=== PATIENT | female | born 1980 | race Caucasian/White ===

== ENCOUNTER 2020-01-29 12:23 | Emergency (ER) | payer OTHER, SELFPAY ==
[2020-01-29 12:32] VITALS: BP 120/71; PULSE 63; RESP 18; TEMP 37.7; O2SAT 100
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
== END 2020-01-29 13:20 | disposition home or self-care (01) ==
PROVIDERS: Emergency Provider Nurse Practitioner Family
DX: J06.9 Acute upper respiratory infection, unspecified (principal); Z87.891 Personal history of nicotine dependence
CPT/HCPCS: 99213; G0463

== ENCOUNTER 2020-02-04 09:03 | Emergency (ER) | payer OTHER, SELFPAY ==
[2020-02-04 09:10] VITALS: BP 111/73; PULSE 59; RESP 16; TEMP 37.3; O2SAT 98
--- NOTE | 2020-02-04 09:16 | ED.URI ---
HPI - URI/Sore Throat General Chief Complaint: Upper Respiratory Infection Stated Complaint: respiratory infection Time Seen by Provider: 02/04/20 09:16 Source: patient and RN notes reviewed History of Present Illness HPI Narrative: Patient is a 39-year-old female that presents the urgent care with complaints of continuous URI symptoms as well as possible UTI. Patient denies any known fever, nausea, vomiting, abdominal pain. States that her employer has noticed her persistent cough and wants her to be ruled out . Patient was seen on the and given Tessalon Perles, Flonase and Claritin and states that she has been using them as directed. Patient states that since her last visit on the she does have some intermittent shortness of breath occasionally. Patient states that her urinary symptoms started yesterday and she has a history of frequent urinary tract infections. Patient has also been taking Azo. No other acute complaints. No acute distress noted. Patient read the plan of care. Related Data Allergies Allergy/AdvReac Type Severity Reaction Status Date / Time amoxicillin Allergy Unknown HIVES, Verified 02/04/20 09:27 CHEST PAIN moxifloxacin Allergy Unknown HIVES Verified 02/04/20 09:27 Penicillins Allergy Unknown HIVES Verified 02/04/20 09:27 Review of Systems Review of Systems: Narrative: CONSTITUTIONAL: Denies fever, chills, or sweats. EYES: Denies visual changes, redness, or discharge. ENT: Reports of rhinorrhea CARDIOVASCULAR: Denies chest pain, palpitations, or edema. RESPIRATORY: Reports a persistent dry cough with intermittent dyspnea GASTROINTESTINAL: Denies abdominal pain, nausea, vomiting, or diarrhea. GENITOURINARY: Reports of dysuria, urinary frequency and urgency SKIN: Denies rash or itching. MUSCULOSKELETAL: Denies back pain, joint pain, or myalgia. NEUROLOGIC: Denies headache, numbness, or weakness. All other systems reviewed are negative, except as documented in HPI. [facility] Past Medical History Medical History (Updated 02/04/20 @ 09:44 by MELISSA Rico) Trigger finger Urinary tract bacterial infections Surgical History Surgical History (Updated 01/29/20 @ 13:14 by MELISSA Mondragon) History of arthroscopic knee surgery Right knee S/P laparoscopic procedure S/P trigger finger release Right middle finger Family History Family History (Updated 01/29/20 @ 13:14 by MELISSA Mondragon) Mother Hypertension Social History Social History (Updated 01/29/20 @ 13:15 by MELISSA Mondragon) Smoking status: Former smoker Second hand tobacco smoke exposure: Yes Alcohol intake: current Substance use: never Gender identity (if verbalized by the patient): Female Comments At the time of my signature, I reviewed and agree with the nursing past medical, surgical, social, and family history. There is no relevant family history pertinent to the patient complaint. Exam Narrative: Exam Narrative: GENERAL: This is a well-nourished, well-developed patient, in no apparent distress. HEAD: normocephalic, atraumatic. EYES: PERRL. Sclera clear/white. Vision is grossly intact. EARS: External ears normal, auditory canals clear and without drainage, TMs normal without perforation. Hearing grossly intact. NOSE: External nose normal with no obvious nasal discharge, nares without redness, clear rhinorrhea. THROAT: Mucous membranes moist, posterior pharynx clear. NECK: Neck supple, non-tender without lymphadenopathy CARDIOVASCULAR: Regular rate and rhythm without murmurs, gallops, or rubs. RESPIRATORY: Clear to auscultation. Slight diminished right upper lobe. No wheezes, rales, or rhonchi. SKIN: warm, intact with no suspicious lesions or rash, good texture and turgor. NEURO: awake, alert, and oriented to person, place and time. There were no obvious focal neurologic abnormalities. EXTREMITIES: No clubbing, cyanosis, or edema. BACK: Negative CVA tenderness Course Vital
--- NOTE | 2020-02-04 09:46 | PC.NURSE ---
NO UC ORDERED PER SAY
== END 2020-02-04 09:50 | disposition home or self-care (01) ==
PROVIDERS: Emergency Provider Nurse Practitioner Family
DX: J06.9 Acute upper respiratory infection, unspecified (principal); N39.0 Urinary tract infection, site not specified; Z87.891 Personal history of nicotine dependence
CPT/HCPCS: 81003; 99213; G0463

== ENCOUNTER 2021-09-07 16:31 | Emergency (ER) | payer OTHER, SELFPAY ==
--- NOTE | ~2021-09-07 | XR_ITS ---
XR foot RT min 3V 09/07/2021 17:00 Indication: Right foot pain after injury Procedure: 4 views right foot Comparison: No prior studies for comparison. Findings: There is a multipartite sesamoid at the level of the first metatarsal head which may repres ent a normal variant, although sesamoid fracture is not excluded. There is mild soft tissue swelling. No other fracture. Lisfranc joint is intact. No foreign bodies. Prominent degenerative calcaneal ent hesophytes. Impression: 1: Multi partite sesamoid overlying the first metatarsal head which may represent normal variant or f ractured sesamoid bone. Correlate for point tenderness. Reviewed, dictated and finalized at location A. Impression: 1: Multi partite sesamoid overlying the first metatarsal head which may represe nt normal variant or fractured sesamoid bone. Correlate for point tenderness.
[2021-09-07 16:35] VITALS: BP 124/73; PULSE 60; RESP 18; TEMP 36.7; O2SAT 100
--- NOTE | 2021-09-07 17:00 | PC.NURSE ---
PT DECLINED WHEELCHAIR TO RADIOLOGY AND ICE FOR COMFORT
--- NOTE | 2021-09-07 17:20 | ED.LOWEXIN ---
HPI - Extremity Injury (Lower) General Chief Complaint: Extremity Injury, Lower Stated Complaint: rt foot injury Time Seen by Provider: 09/07/21 17:20 Source: patient Mode of arrival: ambulatory Limitations: no limitations History of Present Illness HPI Narrative: Nelly Carlin is a 41 yo female no PMH who comes to the [facility] with complaints of right foot pain after stepping on a trailer hitch 6 days ago. Patient rates pain a 7 out of 10 Related Data Allergies Allergy/AdvReac Type Severity Reaction Status Date / Time amoxicillin Allergy Unknown HIVES, Verified 09/07/21 16:49 CHEST PAIN moxifloxacin [From Avelox] Allergy Unknown Hives Verified 09/07/21 16:49 Penicillins Allergy Unknown HIVES Verified 09/07/21 16:49 Review of Systems Review of Systems: CONSTITUTIONAL: Denies fever, chills, sweats. EYES: Denies visual changes, redness, discharge. ENT: Denies rhinorrhea, congestion, sore throat, otalgia. CARDIOVASCULAR: Denies chest pain, palpitations, edema. RESPIRATORY: Denies dyspnea, wheezing, cough GASTROINTESTINAL: Denies abdominal pain, nausea, vomiting, diarrhea. GENITOURINARY: Denies dysuria, hematuria, abnormal discharge SKIN: Denies rash or itching. NEUROLOGIC: Denies numbness, or focal weakness. PSYCHIATRIC: Denies anxiety or depression. Right foot pain from stepping on it 6 days ago PMFSH Past Medical History Medical History (Updated 09/07/21 @ 17:33 by Zamzam Reina CNP) Anxiety Trigger finger Urinary tract bacterial infections Surgical History Surgical History History of arthroscopic knee surgery Right knee S/P laparoscopic procedure S/P trigger finger release Right middle finger Family History Family History Mother Hypertension Hyperlipidemia Father Hypertension Grandparent Cancer Social History Social History Smoking status: Former smoker Second hand tobacco smoke exposure: Yes Alcohol intake: current Substance use: never Gender identity (if verbalized by the patient): Female Comments At time of signature, I agree with nursing past medical, surgical, social and family history. There is no relevant family history pertinent to the presenting complaint. Exam Narrative: GENERAL: This is a well-nourished, well-developed patient, in mild distress. HEAD: normocephalic, atraumatic. EYES: Sclera clear/white. Vision is grossly intact. EARS: External ears normal. Hearing grossly intact. NOSE: External nose normal without nasal discharge, nares without redness, no rhinorrhea. THROAT: Mucous membranes moist, NECK: Neck supple, CARDIOVASCULAR: Regular rate and rhythm without murmurs, gallops, or rubs. RESPIRATORY: Clear to auscultation. Breath sounds equal bilaterally. No wheezes, rales, or rhonchi. GASTROINTESTINAL: Abdomen soft, non-tender, SKIN: warm, intact with no suspicious lesions or rash, good texture and turgor. NEURO: awake, alert, and oriented to person, place and time. There were no obvious focal neurologic abnormalities. Steady gait EXTREMITIES: Normal range of motion. Right foot pain on sore side just in front of heel and also on the lateral and medial sides BACK: Nontender without deformity Course Course Emergency Course: Patient kicked trailer hitch 6 days ago and pain is not improved rates pain is 7/10 X-ray of foot shows multipartite sesamoid bone overlying the first metatarsal head which may resent normal variant or fractured bone correlate with point tenderness otherwise no foreign body prominent degenerative calcaneal enthesophytes Patient put in postop shoe and Tobin wrap given tramadol for pain referral to podiatry Vital Signs Vital signs: Vital Signs Temperature 98.1 F 09/07/21 16:35 Pulse Rate 60 09/07/21 16:35 Respiratory Rate 18 09/07/21 16:35 Blood Pressure 124/7
== END 2021-09-07 17:35 | disposition home or self-care (01) ==
PROVIDERS: Emergency Provider Nurse Practitioner
DX: M79.671 Pain in right foot (principal); Z87.891 Personal history of nicotine dependence
CPT/HCPCS: 73630; 99213; G0463

== ENCOUNTER 2023-02-26 15:29 | Emergency (ER) | payer BC, SELFPAY ==
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
[2023-02-26 15:36] VITALS: BP 111/64; PULSE 77; RESP 20; TEMP 37.2; O2SAT 100
== END 2023-02-26 16:32 | disposition home or self-care (01) ==
PROVIDERS: Emergency Provider Nurse Practitioner Family
DX: S02.2XXA Fracture of nasal bones, initial encounter for closed fracture (principal); W55.12XA Struck by horse, initial encounter; Z87.891 Personal history of nicotine dependence
CPT/HCPCS: 70160; 99213; G0463

== ENCOUNTER 2023-10-31 14:48 | Emergency (ER) | payer BC, SELFPAY ==
--- NOTE | 2023-10-31 14:54 | ED.URI ---
HPI - URI/Sore Throat General Chief Complaint: Upper Respiratory Infection Stated Complaint: fever/cough/aches/sob Time Seen by Provider: 10/31/23 15:23 Source: patient and RN notes reviewed Mode of arrival: ambulatory Limitations: no limitations History of Present Illness HPI Narrative: 43-year-old female presents with concern of for body aches, chills, headache, sore throat, cough, chest congestion. Reports she had fever up to 103.2. MD elicited complaint: cough and sore throat Related Data Allergies Allergy/AdvReac Type Severity Reaction Status Date / Time amoxicillin Allergy Unknown HIVES, Verified 10/31/23 15:07 CHEST PAIN moxifloxacin [From Avelox] Allergy Unknown Hives Verified 10/31/23 15:07 Penicillins Allergy Unknown HIVES Verified 10/31/23 15:07 Review of Systems Review of Systems: CONSTITUTIONAL: Reports malaise, chills, fever. EYES: Denies visual changes, redness, or discharge. ENT: Reports rhinorrhea, congestion, and sore throat. CARDIOVASCULAR: Denies chest pain, palpitations, or edema. RESPIRATORY: Reports cough. Denies dyspnea. GASTROINTESTINAL: Denies abdominal pain, nausea, vomiting, diarrhea SKIN: Denies rash or itching. MUSCULOSKELETAL: Reports myalgia. NEUROLOGIC: Reports headache. All systems reviewed & are unremarkable except as noted in HPI and below PMFSH Past Medical History Medical History (Updated 10/31/23 @ 15:20 by Korin Gregorio NP) Anxiety Trigger finger Urinary tract bacterial infections Surgical History Surgical History History of arthroscopic knee surgery Right knee S/P laparoscopic procedure S/P trigger finger release Right middle finger Family History Family History Mother Hypertension Hyperlipidemia Father Hypertension Grandparent Cancer Social History Social History Smoking status: Former smoker Second hand tobacco smoke exposure: Yes Alcohol intake: current Substance use: never Living arrangements: with family Occupation/Education: occupation Gender identity (if verbalized by the patient): Female Comments At time of signature, agree with nursing past medical, surgical, social and family history. There is no relevant family history pertinent to the presenting complaint Exam Narrative: GENERAL: Nontoxic-appearing, well-nourished, and in no acute distress. HEAD: Normocephalic EYES: PERRLA, conjunctivae clear ENT: Nares clear, turbinates edematous and erythematous, clear discharge. Mucous membranes moist. TM pearly finn with dull light reflex bilaterally; no tragal tenderness. Oropharynx erythematous without lesions. Tonsils not enlarged and without exudate, no drooling, no hoarseness, no trismus, uvula midline. NECK: Supple. No lymphadenopathy CHEST: Clear to auscultation, breath sounds equal. No wheezing, rhonchi, rales, or stridor. No respiratory distress, speaks in full sentences. HEART: Regular rate and rhythm. No murmur heard. SKIN: Warm, dry, no rash. NEURO: Alert and oriented x3. PSYCH: Normal mood and affect Course Course Emergency Course: Patient is aware of diagnosis, understands and agrees to treatment plan. Anticipatory guidance given. Patient agrees to follow-up as directed and is aware of reasons to seek care at the emergency department. Portions of this record may have been created with voice recognition software Level of Care: Express Care Visit Vital Signs Vital signs: Reviewed. MDM - URI/Sore Throat MDM Narrative Medical decision making narrative: Differential diagnosis considered: Tate virus, strep pharyngitis, allergic rhinitis, upper respiratory tract infection, sinusitis, rhinosinusitis, nasopharyngitis. viral pharyngitis, otitis media, otitis externa, pneumonia, bronchitis, viral cough syndrome, viral syndrome, and infl
[2023-10-31 15:00] VITALS: BP 129/80; PULSE 105; RESP 20; TEMP 37.9; O2SAT 100
== END 2023-10-31 15:27 | disposition home or self-care (01) ==
PROVIDERS: Emergency Provider Nurse Practitioner
DX: J40 Bronchitis, not specified as acute or chronic (principal); Z20.822 Contact with and (suspected) exposure to COVID-19; Z87.891 Personal history of nicotine dependence
CPT/HCPCS: 87081; 87426; 87804; 87880; 99213; C9803; G0463

== ENCOUNTER 2023-12-09 12:25 | Emergency (ER) | payer BC, SELFPAY ==
--- NOTE | ~2023-12-09 | XR_ITS ---
[[id number] ] INDICATION: Cough with left lateral rib pain TECHNIQUE: Frontal projection of the upper left ribs, frontal projection of the lower left ribs, obli que projection of all the left ribs, frontal inspiratory chest x-ray for interpretation. FINDINGS: There are no displaced rib fractures identified. There are no soft tissue abnormality see n. The lungs are clear. IMPRESSION: 1:No acute displaced rib fractures. Reviewed, dictated and finalized at location A. ERY LOOPER
[2023-12-09 12:30] VITALS: BP 126/79; PULSE 80; RESP 20; TEMP 36.6; O2SAT 100
--- NOTE | 2023-12-09 13:10 | ED.GENADULT ---
HPI - General Adult General Chief complaint: Upper Respiratory Infection Stated complaint: left side and arm pain Source: patient Mode of arrival: ambulatory Limitations: no limitations History of Present Illness HPI narrative: Patient presents for evaluation of left-sided rib pain. She indicates she had bronchitis in October of 2023 and felt a pop in the left lateral chest after coughing. She had significant pain at that time but symptoms improved. She then noted recurrence of her symptoms earlier this month. Pain is constant but more no also bowl with deep inspiration and coughing. She denies shortness of breath per se. She is a former smoker with a quit date 10 years ago. She also notes pain is worse when elevating her left upper extremity or with twisting movements. 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 No personal or family hx of MD/CVA. She rates her pain 4/10 in severity described as stabbing. She has tried tylenol and ibuprofen for her symptoms. Related Data Allergies Allergy/AdvReac Type Severity Reaction Status Date / Time amoxicillin Allergy Unknown HIVES, Verified 10/31/23 15:07 CHEST PAIN moxifloxacin [From Avelox] Allergy Unknown Hives Verified 10/31/23 15:07 Penicillins Allergy Unknown HIVES Verified 10/31/23 15:07 Review of Systems Review of Systems: CONSTITUTIONAL: Denies fever, chills, or sweats. EYES: Denies visual changes, redness, or discharge. ENT: Denies rhinorrhea, congestion, sore throat, or otalgia. CARDIOVASCULAR: Denies chest pain, palpitations, or edema. RESPIRATORY: Denies cough or dyspnea. GASTROINTESTINAL: Denies abdominal pain, nausea, vomiting, or diarrhea. GENITOURINARY: Denies dysuria or hematuria. SKIN: Denies rash or itching. MUSCULOSKELETAL: Reports pain in the left lateral ribs. Denies back pain, joint pain, or myalgia. NEUROLOGIC: Denies headache, numbness, dizziness, or weakness. PSYCHIATRIC: Denies anxiety or depression. [facility] Past Medical History Medical History (Updated 12/09/23 @ 13:52 by Braydon Espinal, MELISSA, [place]) Anxiety Trigger finger Urinary tract bacterial infections Surgical History Surgical History History of arthroscopic knee surgery Right knee S/P laparoscopic procedure S/P trigger finger release Right middle finger Family History Family History Mother Hypertension Hyperlipidemia Father Hypertension Grandparent Cancer Social History Social History Smoking status: Former smoker Second hand tobacco smoke exposure: Yes Alcohol intake: current Substance use: never Living arrangements: with family Occupation/Education: occupation Gender identity (if verbalized by the patient): Female Exam Narrative: GENERAL: Well-appearing, well-nourished, and in no acute distress. HEAD: Normocephalic, atraumatic. EYES: PERRLA and EOMI. ENT: Nares clear, no rhinorrhea or epistaxis. Mucous membranes moist. Oropharynx without tonsillar hypertrophy exudate or other lesions. Bilateral TMs pearly finn nonbulging NECK: Supple. No adenopathy or masses. No carotid bruits or JVD CHEST: Clear to auscultation. No respiratory distress. No wheezes rales or rhonchi. There is tenderness noted in the left anterolateral ribs. HEART: Regular rate and rhythm. No murmur heard. Normal peripheral pulses. ABDOMEN: Soft, nontender, nondistended, normal active bowel sounds. EXTREMITIES: Normal range of motion. No edema. SKIN: Warm, dry, no rash. NEURO: No focal deficits. Alert and oriented x3. PSYCH: Normal mood and affect. Course Course Emergency Course: This is a 43-year-old female who presented for evaluation of left-sided rib pain. X-ray was obtained was negative for fracture and pneumonia. Recommended applic
== END 2023-12-09 14:01 | disposition home or self-care (01) ==
PROVIDERS: Emergency Provider Nurse Practitioner
DX: M94.0 Chondrocostal junction syndrome [Tietze] (principal); Z87.891 Personal history of nicotine dependence
CPT/HCPCS: 71101; 99213; G0463

== ENCOUNTER 2025-06-02 17:31 | Emergency (ER) | payer SELFPAY ==
--- NOTE | ~2025-06-02 | XR_ITS ---
EXAM: XR foot RT min 3V DATE: 06/02/2025 18:02 HISTORY: crush injury today by horse, lat mid pain. . COMPARISON: 09/07/2021. FINDINGS: Normal mineralization. New tiny ossific fragment adjacent to the proximal and medial corne r of the right first proximal phalanx. Slight distraction and irregularity of the bipartite medial se samoid. No lytic or blastic lesion. Mild scattered degenerative changes. Achilles and plantar entheso carlos. No erosion or periosteal change. Soft tissues within normal limits. IMPRESSION: Possible tiny acute avulsion fracture at the proximal and medial corner of the right firs t proximal phalanx, with possible medial sesamoid injury. Alternatively, these findings may represent degenerative changes. Correlate for acute pain/tenderness. Reviewed, dictated and finalized at location K. IMPRESSION: Possible tiny acute avulsion fracture at the proximal and medial co rner of the right first proximal phalanx, with possible medial sesamoid injury. Alternatively, these findings may represent degenerative changes. Correlate fo r acute pain/tenderness.
[2025-06-02 17:49] VITALS: BP 133/81; PULSE 87; RESP 16; TEMP 37; O2SAT 100
--- NOTE | 2025-06-02 18:43 | ED.LOWEXIN ---
HPI - Extremity Injury (Lower) General Chief Complaint: Extremity Injury, Lower Stated Complaint: Right Foot Injury Time Seen by Provider: 06/02/25 17:50 Source: patient and RN notes reviewed Mode of arrival: ambulatory Limitations: no limitations History of Present Illness HPI Narrative: 44-year-old female Presents Express Care complaining of injury to right foot. Patient reports she was going to feed the horses when 1 of her horses stomped on her right foot approximately 1 hour ago. Patient has not been taking to help with the pain. Patient has been able to ambulate and drive since the injury. Patient denies any numbness, tingling or any other injuries. Patient denies any significant past medical history. Patient reports she does have a previous injury to her right foot from a horse but was never evaluated for it. Related Data Allergies Allergy/AdvReac Type Severity Reaction Status Date / Time amoxicillin Allergy Unknown HIVES, Verified 06/02/25 17:52 CHEST PAIN moxifloxacin (From Avelox) Allergy Unknown Hives Verified 06/02/25 17:52 Penicillins Allergy Unknown HIVES Verified 06/02/25 17:52 Review of Systems Review of Systems: CONSTITUTIONAL: Denies fever, chills, or sweats. EYES: Denies visual changes, redness, or discharge. ENT: Denies rhinorrhea, congestion, sore throat, or otalgia. CARDIOVASCULAR: Denies chest pain, palpitations, or edema. RESPIRATORY: Denies cough or dyspnea. GASTROINTESTINAL: Denies abdominal pain, nausea, vomiting, or diarrhea. GENITOURINARY: Denies dysuria or hematuria. SKIN: Denies rash, wound, or itching. MUSCULOSKELETAL: Denies back pain, joint pain, or myalgia. Positive for right foot injury and swelling NEUROLOGIC: Denies headache, numbness, or weakness. PSYCHIATRIC: Denies anxiety or depression. All other systems reviewed are negative, except as documented in HPI. [facility] Past Medical History Medical History Anxiety Trigger finger Urinary tract bacterial infections Surgical History Surgical History History of arthroscopic knee surgery Right knee S/P trigger finger release Right middle finger S/P laparoscopic procedure Family History Family History Mother Hypertension Hyperlipidemia Father Hypertension Grandparent Cancer Social History Social History Smoking status: Former smoker Second hand tobacco smoke exposure: Yes Alcohol intake: current Substance use: never Living arrangements: with family Occupation/Education: occupation Gender identity (if verbalized by the patient): Female Comments At the time of my signature, I reviewed and agree with the nursing past medical, surgical, social, and family history. There is no relevant family history pertinent to the patient complaint. Exam Narrative: GENERAL: This is a well-nourished, well-developed adult, in no apparent distress. They are non ill-appearing, nontoxic appearing. HEAD: normocephalic, atraumatic. EYES: Sclera clear/white. Vision is grossly intact. Conjunctiva normal. Extraocular movement intact. EARS: External ears normal Hearing grossly intact. NOSE: External nose normal THROAT: Mucous membranes moist NECK: Neck supple CARDIOVASCULAR: Regular rate and rhythm RESPIRATORY: Respiratory rate normal, respiratory effort nonlabored, no respiratory distress NEURO: awake, alert, and oriented to person, place and time. There were no obvious focal neurologic abnormalities. EXTREMITIES: Right foot: No obvious deformity. There is swelling and bruising to the lateral dorsal midfoot. Normal range of motion. Tenderness to palpation near the 4th of 5th metatarsal. No other bony tenderness. Capillary refill less than 3 seconds. Right pedal Pulse 2 +palpable. Normal sensation. Neurovascular status intact distal injury. Patient is able to wiggle her toes. Normal dorsiflexion plantar flexion of foot. Negative Beyer's test. BACK: Nontender without deformity. Course Course Emergency Course: Portions of this record may have been created with voice recognition software Level of Care: Express Care Visit Vital Signs Vital signs: Vital Signs Temperature 98.6 F 06/02/25 17:49 Pulse Rate 87 06/02/25 17:49 Respiratory Rate 16 06/02/25 17:49 Blood Pressure 133/81 06/02/25 17:49 Pulse Oximetry 100 06/02/25 17:49 Temperature 98.6 F 06/02/25 17:49 Pulse Rate 87 06/02/25 17:49 Respiratory Rate 16 06/02/25 17:49 Blood Pressure 133/81 06/02/25 17:49 Pulse Oximetry 100 06/02/25 17:49 Reviewed MDM - Extremity Injury (Lower) MDM Narrative Medical decision making narrative: X-ray right foot shows a possible avulsion fracture to the 1st proximal distal phalanx and a possible sesamoid fracture to the distal 1st metatarsal, these could be degenerative changes. Patient has no bony tenderness, swelling, redness, bruising over the 1st metatarsal or great toe. Patient's pain is primarily throughout the 4th and 5th metatarsal. Likely this is degenerative changes or from a previous injury as patient clearly stated that she injured her right foot before from a horse without any other medical evaluation. Will have patient follow-up with ortho for further evaluation management. Patient given Tobin wrap for compression and a postop shoe. Patient likely today has a crush injury to the right foot Discussed physical exam findings. Advised supportive measures and signs/symptoms to go to the ER. Pt is appropriate for outpt treatment and f/u. Differential Diagnosis Differential diagnosis: Likely fracture of toe and other (Foot fracture, crush injury,) Imaging Data Radiologist's impression: ITS Impressions Foot X-Ray 06/02/25 18:05 IMPRESSION: Possible tiny acute avulsion fracture at the proximal and medial corner of the right first proximal phalanx, with possible medial sesamoid injury. Alternatively, these findings may represent degenerative changes. Correlate for acute pain/tenderness. Critical Care Time Critical Care Time Critical Care Time: No Discharge Plan Discharge Clinical Impression: Crush injury of right foot Patient Disposition: Home Condition: Stable Instructions: Antibiotic Form, Crush Injury (ED) Additional Instructions: The x-ray of your right should foot showed a possible avulsion fracture to your right great toe a possible distal fracture to the right 1st metatarsal, this is likely an old injury or degenerative changes as you stated since you're not having pain in this area. Please follow-up with an orthopedist for further evaluation and management for 2nd opinion. Rest and elevate the leg; bear weight as tolerated. Use the postop shoe when ambulating. Apply ice 15-20 minute intervals several times a day Keep it wrapped with TOBIN for compression Motrin 600mg -800mg every 8 hours, alternate with Tylenol 1000mg every 8 hours as needed Follow up with your primary care provider a orthopedist in 1-2 weeks. Patient Language: Tajik Prescriptions: No Action cyclobenzaprine 10 mg tablet 10 mg PO TID PRN (Reason: muscle spasm) Qty: 15 0RF cyclobenzaprine 10 mg tablet 10 mg PO TID PRN (Reason: muscle spasm) Qty: 15 0RF Follow-up/Referrals: Diane Villegas DPM [Physician] - PHYSICIAN,SUPERVISOR OF INSTRUCTION [Primary Care Provider] - Adria Willis MD [Physician] - Stand Alone Forms: Work/School Release IP Time of Disposition: 18:23
== END 2025-06-02 18:31 | disposition home or self-care (01) ==
DX: S99.921A Unspecified injury of right foot, initial encounter (principal); W55.12XA Struck by horse, initial encounter; Z87.891 Personal history of nicotine dependence
CPT/HCPCS: 73630; 99213; G0463